=== PATIENT | female | born 1950 | race Caucasian/White ===

== ENCOUNTER 2019-01-25 14:55 | Emergency (ER) | payer MEDICARE ==
[~2019-01-25] VITALS: Ht 157.5 cm; Wt 83.9 kg
[2019-01-25 15:01] VITALS: BP 164/88
[2019-01-25] MEDS ORDERED: DIPHTH,PERTUSS(ACELL),TET TOX 0.5 ML DISP.SYRIN. VAX IM ONE (15:15)
[2019-01-25] MEDS ORDERED: NEOMY/BACITR/POLYMYXIN OINT PACKET. TP ONE (15:15)
--- NOTE | 2019-01-25 15:20 | PHYS DOC ---
Past Medical History Past Medical History: Other Additional Past Medical Histor: osteoporosis (VIMAL WALL [place]) Past Surgical History: Hysterectomy (VIMAL WALL WELLINGTON) Alcohol Use: None Drug Use: None (VIMAL WALL APRN) Adult General Chief Complaint Chief Complaint: MECHANICAL FALL HPI HPI Patient is a 68 year old female who presents to be evaluated status post falling. Patient states she was at the [place] [employer], she was walking down the last step when she missed it and fell face forward. Denies any loss of consciousness. Denies any neck pain. She is complaining of abrasion on the nose. She is also complaining abrasion of the left pinky finger and bilateral hand pain rated as mild worse on ROM and touching certain areas. Patient denies anything alleviating or exacerbating her pain. Patient states she was able to get up and ambulate after falling. (VIMAL WALL APRN) Review of Systems Review of Systems Constitutional: Denies fever or chills [] Eyes: Denies change in visual acuity, redness, or eye pain [] HENT: Reports nose abrasion. Denies nasal congestion or sore throat [] Respiratory: Denies cough or shortness of breath [] Cardiovascular: No additional information not addressed in HPI [] GI: Denies abdominal pain, nausea, vomiting, bloody stools or diarrhea [] : Denies dysuria or hematuria [] Musculoskeletal: Reports left pinky finger abrasion Integument: Denies rash or skin lesions [] Neurologic: Denies headache, focal weakness or sensory changes [] All other systems were reviewed and found to be within normal limits, except as documented in this note. (VIMAL WALL [place]LL[place]) Current Medications Current Medications Current Medications Medications (Trade) Dose Ordered Sig/Vivi Start Time Stop Time Status Last Admin Dose Admin Diphtheria/ Tetanus/Acell Pertussis (Boostrix) 0.5 ml ONCE ONCE 01/25/19 15:15 01/25/19 15:16 DC 01/25/19 16:18 0.5 ML Neomycin/ Polymyxin/ Bacitracin (Triple Antibiotic Ointment) 1 pkt 1X ONCE 01/25/19 15:15 01/25/19 15:16 DC 01/25/19 16:17 1 PKT (NISHI VERDUZCO DO) Allergies Allergies Allergies Coded Allergies Type Severity Reaction Last Updated Verified No Known Drug Allergies 5/24/19 No (NISHI VERDUZCO DO) Physical Exam Physical Exam Constitutional: Well developed, well nourished, no acute distress, non-toxic appearance. [] HENT: Normocephalic,bilateral external ears normal, oropharynx moist, no oral exudates, Abrasions noted on the forehead, Abrasions noted on the anterior aspect of the nasal bridge, mild swelling noted on the nose, no active nose bleeding noted. The nose appears slightly deformed though some of it could be from the swelling. Eyes: PERRLA, EOMI, conjunctiva normal, no discharge. [] Neck: Normal range of motion, no tenderness, supple, no stridor. [] Cardiovascular:Heart rate regular rhythm, no murmur [] Lungs & Thorax: Bilateral breath sounds clear to auscultation [] Abdomen: Bowel sounds normal, soft, no tenderness, no masses, no pulsatile masses. [] Skin: Warm, dry, no erythema, no rash. [] Back: No tenderness, no CVA tenderness. [] Extremities: Left pinky finger with abrasion on the distal and lateral aspect, tenderness on this region, full range of motion to the left fingers. Right hand with no obvious deformity, no abrasions. Slight tenderness on palpation of the right palm. Full range of motion to the right hand and fingers. Adequate radial, medial, ulnar sensation to the right hand. +2 right radial pulse. Cap refill less than does also right fingers. Neurologic: Alert and oriented X 3, normal motor function, normal sensory function, no focal deficits noted. [] Psychologic: Affect normal, judgement normal, mood normal. [] (VIMAL WALL APRN) Current Patient Data Vital Signs Vital Signs Date Time Temp Pulse Resp B/P (MAP) Pulse Ox O2 Delivery O2 Flow Rate FiO2 01/25/19 15:01 98.4 94 16 164/88 (113) 97 Room Air 98.4 (NISHI VERDUZCO DO) EKG EKG [] (VIMAL WALL APRN) Radiology/Procedures Radiology/Procedures []PROCEDURE: HAND BILAT 3V EXAM: Bilateral hands, 3 views. HISTORY: Fall. Pain. COMPARISON: None. FINDINGS: 3 views of both hands are obtained. There is no fracture, dislocation or subluxation. There is mild bilateral second through fourth proximal and interphalangeal joint spurring. IMPRESSION: 1. No acute osseous finding. 2. 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 Electronically signed by: Dawn Piña MD (01/25/2019 3:37 PM) [facility] DICTATED and SIGNED BY: DAWN PIÑA MD DATE: 01/25/19 1537 PROCEDURE: CT HEAD AND MAXILLOFACIAL [facility] Compliance Statement: One or more of the following individualized dose reduction techniques were utilized for this examination: 1. Automated exposure control 2. Adjustment of the mA and/or kV according to patient size 3. Use of iterative reconstruction technique CT HEAD AND MAXILLOFACIAL WITHOUT CONTRAST History: Fall, this bottom step. Fell onto face. Comparison: None. Procedure: Axial images are obtained of the head from the skull base through the vertex without IV contrast. Helical CT imaging of the facial bones is performed without IV contrast. Findings: The ventricles and sulci are normal for the patient's age. No mass-effect, midline shift, hemorrhage or obvious acute infarction is identified. Basilar cisterns are patent. Bone windows demonstrate no significant calvarial abnormality. There is minimal cortical buckling of the right nasal bone as seen on image 35. This could be an acute traumatic negligibly displaced fracture. No other acute facial bone fracture is identified. The zygomatic arches and pterygoid plates are intact. Mild inferior right maxillary sinus mucosal thickening. The other visualized paranasal sinuses are clear. Mastoid air cells are well aerated. The upper cervical spine alignment is maintained. There is mild degenerative endplate spurring. There is facet hypertrophy that is worse on the left than the right. There is mild retroodontoid soft tissue thickening. IMPRESSION: 1. No acute intracranial abnormality. 2. There may be acute traumatic negligibly displaced fracture of the right nasal bone as detailed above. Suggest correlation with physical exam. There is otherwise no acute facial bone fracture. Electronically signed by: Igor Mcintyre MD (01/25/2019 3:54 PM) [id number] DICTATED and SIGNED BY: IGOR MCINTYRE MD DATE: 01/25/19 1554 (VIMAL WALL APRN) Course & Med Decision Making Course & Med Decision Making Pertinent Labs and Imaging studies reviewed. (See chart for details) This is a 68-year-old female patient presented to the ED today status post falling. No loss of consciousness. Patient hit her face on the ground. Patient is complaining of abrasions on her forehead, nasal bridge, and bilateral hand pain. Bilateral hand x-rays interpreted by radiologist are negative for any acute findings. CT of the head is negative, CT of maxillary facial was noted for may be acute traumatic negligibly displaced fracture of the right nasal bone. Patient was given tetanus in the ED. Results were communicated to her. She states she is from out of town and will follow-up with her own doctor next week when she gets back home. Discharged with Augmentin and hydrocodone as needed for pain. Ice elevation encouraged. Provided return precautions and discharged in stable condition. (VIMAL WALL APRN) Dragon Disclaimer Dragon Disclaimer This electronic medical record was generated, in whole or in part, using a voice recognition dictation system. (VIMAL WALL APRN) Departure Departure Impression: Primary Impression: Nasal bone fracture Additional Impressions: Fall down steps Contusion of hand, right Contusion of hand, left Disposition: 01 HOME, SELF-CARE Condition: STABLE Patient Instructions: Contusion Additional Instructions: You were evaluated in the emergency room after falling. Your CT of the head is negative, your CT of the face is noted for nasal bone fracture. Please follow-up with your primary care doctor as well as a plastic surgeon when you get back home. Take the prescribed medications as ordered. Continue applying ice pack to your nasal bridge. Apply Neosporin over the abrasions. Scripts Hydrocodone/Apap 5-325 (NORCO 5-325 TABLET) 1 Each Tablet 1 TAB PO Q6HRS, #10 TAB Prov: VIMAL WALL APRN 01/25/19 Amoxicillin/Potassium Clav (AUGMENTIN 875-125 TABLET) 1 Each Tablet 1 TAB PO BID, #20 TAB Prov: VIMAL WALL APRN 01/25/19 Attending Signature Attending Signature I have reviewed the PA/HEAVY COIL WINDER's note and plan of care. I was available for consultation as needed during the patient's visit in the emergency department. I agree with the clinical impression, plan, and disposition. (NISHI VERDUZCO DO) Problem Qualifiers Primary Impression: Nasal bone fracture Encounter type: initial encounter Fracture type: open Qualified Codes: S02.2XXB - Fracture of nasal bones, initial encounter for open fracture Additional Impressions: Fall down steps Encounter type: initial encounter Qualified Codes: W10.8XXA - Fall (on) (from) other stairs and steps, initial encounter Contusion of hand, right Encounter type: initial encounter Qualified Codes: S60.221A - Contusion of right hand, initial encounter Contusion of hand, left Encounter type: initial encounter Qualified Codes: S60.222A - Contusion of left hand, initial encounter VIMAL WALL APRN January 25, 2019 15:20 NISHI VERDUZCO DO January 29, 2019 05:04
--- NOTE | 2019-01-25 15:40 | RAD ---
EXAM: Bilateral hands, 3 views. HISTORY: Fall. Pain. COMPARISON: None. FINDINGS: 3 views of both hands are obtained. There is no fracture, dislocation or subluxation. There is mild bilateral second through fourth proximal and interphalangeal joint spurring. IMPRESSION: 1. No acute osseous finding. 2. 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 Electronically signed by: Dawn Flower MD (01/25/2019 3:37 PM) [facility]
--- NOTE | 2019-01-25 15:57 | RAD ---
PQRS Compliance Statement: One or more of the following individualized dose reduction techniques were utilized for this examination: 1. Automated exposure control 2. Adjustment of the mA and/or kV according to patient size 3. Use of iterative reconstruction technique CT HEAD AND MAXILLOFACIAL WITHOUT CONTRAST History: Fall, this bottom step. Fell onto face. Comparison: None. Procedure: Axial images are obtained of the head from the skull base through the vertex without IV contrast. Helical CT imaging of the facial bones is performed without IV contrast. Findings: The ventricles and sulci are normal for the patient's age. No mass-effect, midline shift, hemorrhage or obvious acute infarction is identified. Basilar cisterns are patent. Bone windows demonstrate no significant calvarial abnormality. There is minimal cortical buckling of the right nasal bone as seen on image 35. This could be an acute traumatic negligibly displaced fracture. No other acute facial bone fracture is identified. The zygomatic arches and pterygoid plates are intact. Mild inferior right maxillary sinus mucosal thickening. The other visualized paranasal sinuses are clear. Mastoid air cells are well aerated. The upper cervical spine alignment is maintained. There is mild degenerative endplate spurring. There is facet hypertrophy that is worse on the left than the right. There is mild retroodontoid soft tissue thickening. IMPRESSION: 1. No acute intracranial abnormality. 2. There may be acute traumatic negligibly displaced fracture of the right nasal bone as detailed above. Suggest correlation with physical exam. There is otherwise no acute facial bone fracture. Electronically signed by: Igor Mcintyre MD (01/25/2019 3:54 PM) [id number]
[2019-01-25] MEDS ORDERED: AMOX1TAB61 PO (16:23)
[2019-01-25] MEDS ORDERED: HYDR-3164 PO (16:23)
== END 2019-01-25 16:39 | disposition home or self-care (01) ==
LOC: ER 14:55
DX: S02.2XXB Fracture of nasal bones, initial encounter for open fracture (principal); S60.222A Contusion of left hand, initial encounter; S60.221A Contusion of right hand, initial encounter; S60.417A Abrasion of left little finger, initial encounter; M19.042 Primary osteoarthritis, left hand; M19.041 Primary osteoarthritis, right hand; W10.8XXA Fall (on) (from) other stairs and steps, initial encounter; Y93.89 Activity, other specified; Y92.89 Other specified places as the place of occurrence of the external cause; Y99.8 Other external cause status
CPT/HCPCS: 70450; 70486; 73130; 90471; 90715; 99284